=== PATIENT | male | born 1985 ===

== ENCOUNTER 2016-07-01 08:32 | Emergency (ER) | payer SELFPAY ==
[2016-07-01 08:34] VITALS: BP 126/61; PULSE 68; RESP 16; TEMP 98.1; O2SAT 98
[2016-07-01 08:35] VITALS: BMI 25.8
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
== END 2016-07-01 09:24 | disposition home or self-care (01) ==
LOC: H.ER 08:32
DX: S60.221A Contusion of right hand, initial encounter (principal); W22.8XXA Striking against or struck by other objects, initial encounter; Y92.89 Other specified places as the place of occurrence of the external cause